=== PATIENT | male | born 1995 | race Two or more races ===

== ENCOUNTER 2025-01-28 18:37 | Emergency (ER) | payer MEDICAID, OTHER ==
[~2025-01-28] VITALS: Ht 177.8 cm; Wt 90.7 kg
[2025-01-28 21:00] VITALS: BP 132/84; TEMP 97.6; O2SAT 98
== END 2025-01-28 21:00 | disposition left against medical advice (07) ==
LOC: ER 18:46
DX: R51.9 Headache, unspecified (principal); F32.A Depression, unspecified; V49.9XXA Car occupant (driver) (passenger) injured in unspecified traffic accident, initial encounter; Y93.89 Activity, other specified; Y92.410 Unspecified street and highway as the place of occurrence of the external cause; Y99.8 Other external cause status
CPT/HCPCS: 70450-TC; 72125-TC